=== PATIENT | female | born 1995 | race Caucasian/White ===

== ENCOUNTER 2022-01-07 15:32 | Emergency (ER) | payer MEDICAID ==
[~2022-01-07] VITALS: Ht 165.1 cm; Wt 59.0 kg
[2022-01-07 16:04] VITALS: BP 118/70
[2022-01-07 18:21] LABS: BASOPHILS % 0.3 % (0.0-2.0); EOSINOPHILS % 0.1 % (0.0-5.0); HEMATOCRIT. 40.5 % (36.0-48.0); HEMOGLOBIN. 13.3 g/dL (12.0-16.0); LYMPHOCYTES % 13.7 % (20.0-50.0); MEAN CORPUSCULAR HEMOGLOBIN 27.2 pg (28.0-32.0); MEAN CORPUSCULAR VOLUME 82.5 fL (81.0-99.0); MEAN PLATELET VOLUME 8.2 fl (7.4-10.4); MONOCYTES % 7.6 % (2.0-8.0); NEUTROPHILS % 78.3 % (40.0-76.0); PLATELET 246 x1000/uL (130-400); RED CELL DISTRIBUTION WIDTH 14.2 % (11.6-14.6)
[2022-01-07 18:22] LABS: CLARITY URINE CLOUDY (CLEAR); COLOR URINE YELLOW (YELLOW); KETONES URINE 1+ (NEGATIVE); LEUKOCYTE ESTERASE URINE 2+ (NEGATIVE); NITRITE URINE POSITIVE (NEGATIVE); OCCULT BLOOD URINE 1+ (NEGATIVE); PROTEIN URINE 1+ (NEGATIVE)
[2022-01-07 18:27] LABS: CHLORIDE 106 mEq/L (98-107)
[2022-01-07 18:29] LABS: INR 1.1; PROTHROMBIN TIME 11.4 sec (9.6-11.0)
[2022-01-07 18:41] LABS: HCG SCREEN NEGATIVE
[2022-01-07] MEDS ORDERED: ACETAMINOPHEN 325MG TABLET PO ONE (21:15)
[2022-01-07] MEDS ORDERED: CEFTRIAXONE 1 G PREMIX 50 ML IV ONE (21:15)
[2022-01-07] MEDS ORDERED: SODIUM CHLORIDE 0.9% 1,000 ML IV ONE (21:15)
[2022-01-07] MEDS ORDERED: IBUP-2028 MT (22:24)
[2022-01-07] MEDS ORDERED: CEFP200T13 MT (22:24)
[2022-01-07] MEDS ORDERED: TOPUD PO (22:24)
== END 2022-01-07 23:55 | disposition home or self-care (01) ==
LOC: ER 15:32
DX: N12 Tubulo-interstitial nephritis, not specified as acute or chronic (principal)
CPT/HCPCS: 36415; 74176; 76700; 80053; 81003; 81025; 83690; 84703; 85025; 85610; 87077; 87086; 87186; 96365; 99285; J0696; J7030

== ENCOUNTER 2022-10-30 19:50 | Emergency (ER) | payer MEDICAID, OTHER ==
[~2022-10-30] VITALS: Ht 167.6 cm; Wt 61.4 kg
[~2022-10-30 19:50] MED LIST: CEFP200T13 MT; IBUP-2028 MT; TOPUD PO
[2022-10-30] MEDS ORDERED: MAGNESIUM/ALUMINUM HYDROXIDE/SIMETHICONE 30ML UDC PO STA (20:07)
[2022-10-30] MEDS ORDERED: ONDANSETRON 4MG ODT PO STA (20:07)
[2022-10-30] MEDS ORDERED: DICYCLOMINE 10 MG/5 ML ORAL SYR PO STA (20:07)
[2022-10-30 20:32] LABS: BASOPHILS % 0.4 % (0.0-2.0); EOSINOPHILS % 2.3 % (0.0-5.0); HEMOGLOBIN. 12.4 g/dL (12.0-16.0); LYMPHOCYTES % 23.5 % (20.0-50.0); MEAN CORPUSCULAR HEMOGLOBIN 27.7 pg (28.0-32.0); MEAN CORPUSCULAR VOLUME 82.4 fL (81.0-99.0); MEAN PLATELET VOLUME 8.1 fl (7.4-10.4); MONOCYTES % 5.4 % (2.0-8.0); NEUTROPHILS % 68.4 % (40.0-76.0); PLATELET 272 x1000/uL (130-400); RED BLOOD CELL COUNT 4.49 mill/uL (4.2-5.4); RED CELL DISTRIBUTION WIDTH 13.3 % (11.6-14.6)
[2022-10-30 20:38] LABS: CHLORIDE 108 mEq/L (98-107)
[2022-10-30 20:39] VITALS: BP 116/74
[2022-10-30 20:48] LABS: HCG SCREEN NEGATIVE
[2022-10-30 21:04] LABS: CLARITY URINE CLEAR (CLEAR); COLOR URINE YELLOW (YELLOW); KETONES URINE 3+ (NEGATIVE); LEUKOCYTE ESTERASE URINE NEGATIVE (NEGATIVE); NITRITE URINE NEGATIVE (NEGATIVE); OCCULT BLOOD URINE NEGATIVE (NEGATIVE); PH URINE 5.5 (4.5-8.0); PROTEIN URINE NEGATIVE (NEGATIVE); SPECIFIC GRAVITY URINE 1.026 (1.005-1.030); UROBILINOGEN URINE 0.2 E.U./dL (0.2-1.0)
[2022-10-30] MEDS ORDERED: ONDA4TAB50 MT (21:12)
[2022-10-30] MEDS ORDERED: OMEP40CA20 MT (21:12)
== END 2022-10-30 21:25 | disposition home or self-care (01) ==
LOC: ER 20:04
DX: R10.13 Epigastric pain (principal); R11.2 Nausea with vomiting, unspecified
CPT/HCPCS: 36415; 80053; 81003; 81025; 83690; 84703; 85025; 99284; Q0162; Z7610